=== PATIENT | male | born 1960 | race Hispanic/Latino ===

== ENCOUNTER 2022-05-06 07:07 | Day surgery (SDC) | payer BC ==
[~2022-05-06] VITALS: Ht 157.5 cm; Wt 50.8 kg
[~2022-05-06 07:07] MED LIST: LOTRIMIN CREAM; NO; PERCOCET 5/325M1 TAB PO; PROSCAR5 MG PO; XELPROS0.005 % OU; [UNRECOGNIZED DRUG - REMARK]
[2022-05-06] MEDS ORDERED: TAMSULOSIN HCL0.4 MG PO (07:25)
[2022-05-06] MEDS ORDERED: GABAPENTIN100 MG PO (07:25)
[2022-05-06 09:17] VITALS: BP 90/64
== END 2022-05-06 09:30 | disposition home or self-care (01) | DRG 951 ==
LOC: ENDO 07:07
PROVIDERS: ATTEND Surgery
PROC: 0DJD8ZZ Inspection of Lower Intestinal Tract, Via Natural or Artificial Opening Endoscopic (ICD-10-PCS; principal; 2022-05-06)
DX: Z12.11 Encounter for screening for malignant neoplasm of colon (principal); F17.210 Nicotine dependence, cigarettes, uncomplicated

== ENCOUNTER 2024-12-24 02:36 | Emergency (ER) | payer SELFPAY ==
[~2024-12-24] VITALS: Ht 157.5 cm; Wt 62.6 kg
[~2024-12-24 02:36] MED LIST changes: +GABAPENTIN100 MG PO; +TAMSULOSIN HCL0.4 MG PO
[2024-12-24 02:44] VITALS: BP 147/87
[2024-12-24] MEDS ORDERED: Diph, Acellular Pertussis, Tet 0.5 ML/VIAL (Tdap) SDV IM ONE (02:55)
[2024-12-24] MEDS ORDERED: NEOMYCIN-BACITRACIN-POLYMYXIN 0.5 GM/PAK PAK TOP ONE (02:55)
[2024-12-24] MEDS ORDERED: SULFAMETHOXAZOLE W/TRIMETHOPRI 1 COMBO TAB PO ONE (02:55)
[2024-12-24] MEDS ORDERED: POVIDONE IODINE 0.5 OZ/BTL TOP ONE (02:55)
[2024-12-24] MEDS ORDERED: BACTRIM DS1 TAB PO (02:59)
[2024-12-24 03:00] VITALS: BP 144/81
[2024-12-24 03:06] VITALS: BP 144/81
== END 2024-12-24 03:34 | disposition home or self-care (01) | DRG 605 ==
LOC: ED 02:36
DX: S61.215A Laceration without foreign body of left ring finger without damage to nail, initial encounter (principal); W26.8XXA Contact with other sharp object(s), not elsewhere classified, initial encounter
CPT/HCPCS: 90715